=== PATIENT | male | born 1975 | race Caucasian/White ===

== ENCOUNTER → 2017-03-16 08:55 | Outpatient (CLI) | payer MEDICARE ==
[2015-03-02 10:06] VITALS: BMI 33.0
[~2017-03-16 08:55] MED LIST: EFFEXOR37.5 MG PO; TENORMIN25 MG PO
== END | disposition home or self-care (01) ==
LOC: D.CT 08:55
DX: R10.13 Epigastric pain (principal); R10.815 Periumbilic abdominal tenderness